=== PATIENT | female | born 1970 | race Caucasian/White ===

== ENCOUNTER 2018-04-21 13:03 | Emergency (ER) | payer OTHER ==
[~2018-04-21] VITALS: Ht 170.2 cm; Wt 59.0 kg
[~2018-04-21 13:03] MED LIST: DEPAKENE250 MG/5 M PO
[2018-04-21 13:10] VITALS: BP 127/83
--- NOTE | 2018-04-21 13:52 | ED UPPER/LOWER EXTREMITY COMPL ---
History of Present Illness General Chief Complaint: General Adult Stated Complaint: R ARM PAIN S/P FALL Source: patient Exam Limitations: no limitations Vital Signs & Intake/Output Vital Signs & Intake/Output Vital Signs Date Time Temp Pulse Resp B/P B/P Pulse O2 O2 Flow FiO2 Mean Ox Delivery Rate 04/21 1500 97 04/21 1310 98.3 83 16 127/83 99 Room Air Allergies Coded Allergies: NO KNOWN ALLERGIES (07/24/12) Reconcile Medications Valproic Acid (Depakene) 250 MG/5 ML SOLUTION 10 ML PO BID SEIZURES TAKE 10 ML IN THE MORNING AND 5 ML AT NIGHT. Triage Note: 47 Y/O FEMALE C/O R ELBOW PAIN S/P MECHANICAL TRIP AND FALL WHILE IN HOME 30 MIN AGO. DENIES ANY OTHER COMPLAINTS. DECLINES OFFER OF PAIN MEDS NO DEFORMITIES NOTED Triage Nurses Notes Reviewed? yes Onset: Abrupt Duration: constant Timing: single episode today Severity: moderate Severity Numbers: 5 HPI: Patient is a 47-year-old female who presents to the emergency room with concerns of mechanical fall where patient slipped and struck the right posterior aspect of elbow to windowsill resulting acute onset of pain and inflammation. Minimal skin abrasions noted Patient has left arm dominant denies any shoulder or wrist pain no medications given prior to arrival (Devon Dickson) Past History Travel History Traveled to [place] past 21 day No Medical History Any Pertinent Medical History? see below for history Neurological: seizure EENT: NONE Cardiovascular: NONE Respiratory: NONE Gastrointestinal: NONE Hepatic: NONE Renal: NONE Musculoskeletal: NONE Psychiatric: NONE Endocrine: hypothyroidism Blood Disorders: NONE Cancer(s): NONE FRENCH FOLDER/Reproductive: NONE Surgical History Surgical History: non-contributory Psychosocial History What is your primary language Kiswahili Tobacco Use: Current Daily Use Daily Tobacco Use Amount/Type: => 5 Cigarettes daily Family History Hx Contributory? No (Devon Dickson) Review of Systems Review of Systems Constitutional: Reports: no symptoms. EENTM: Reports: no symptoms. Respiratory: Reports: no symptoms. Cardiovascular: Reports: no symptoms. Gastrointestinal/Abdominal: Reports: no symptoms. Genitourinary: Reports: no symptoms. Musculoskeletal: Reports: see HPI, joint pain. Skin: Reports: no symptoms. Neurological/Psychological: Reports: no symptoms. Hematologic/Endocrine: Reports: no symptoms. Immunological: Reports: no symptoms. All Other Systems: Reviewed and Negative (Devon Dickson) Physical Exam Physical Exam General Appearance: no apparent distress, alert, comfortable Head: atraumatic Eyes: Bilateral: normal appearance. Neck: normal inspection, no midline tenderness Cardiovascular/Respiratory: no respiratory distress Peripheral Pulses: 2+ radial (R) Neurologic/Tendon: normal sensation, normal motor functions, normal tendon functions, responds to pain, no evidence tendon injury, no pulse deficit Skin: normal color, warm/dry Comments: Right shoulder normal inspection nontender full active range of motion Right elbow noted generalized point tenderness and mild swelling and skin abrasion Decreased active range of motion noted Right wrist normal inspection nontender (Devon Dickson) Progress Differential Diagnosis: arterial insufficiency, compartment syndrome, contusion, dislocation, DVT, fracture, gout, septic arthritis, sprain, tendon injury Plan of Care: Orders Procedure Date/time Status XRY-ELBOW 3 OR MORE VIEWS, R 04/21 1315 Active Patient had unremarkable osseous injury after x-rays resulted from where patient was point tender. Patient was neurovascular intact to right upper extremity. \Patient will be treated for concerns of elbow contusion right side discussed disposition plan and she will comply and have no questions patient declined pain medications in the emergency room Diagnostic Imaging: Viewed by Me: Radiology Read. Radiology Impression: no acute abnormality, no fracture Comments: PATIENT: KEVIN NOBLE PRESENT AGE: 47 PATIENT ACCOUNT NO: [id number] : 68 LOCATION: [facility] ORDERING PHYSICIAN: Devon ARIZA SERVICE DATE: 04/21/18 EXAM TYPE: RAD - XRY-ELBOW 3 OR MORE VIEWS, R EXAMINATION: XR ELBOW, RIGHT CLINICAL INFORMATION: Right elbow direct trauma. COMPARISON: None. TECHNIQUE: AP, lateral, and oblique views of the right elbow were obtained. FINDINGS: There is normal alignment of the osseous structures. No fractures are demonstrated. No joint effusions are seen. The soft tissues are unremarkable. Joint spaces are maintained. There are no radiodense foreign bodies. IMPRESSION: 1. Unremarkable x-rays of the right elbow. DICTATED BY: Shan Nogueira MD DATE/TIME DICTATED:04/21/181418 MOTOR VEHICLE LICENCE EXAMINER:PACO (Devon Dickson) Departure Departure Disposition: HOME OR SELF CARE Condition: Stable Clinical Impression Primary Impression: Contusion of elbow, right Referrals: Amelie Coronel APRN (PCP/Family) Alber Mullins MD Additional Instructions: As discussed begin [id number] ibuprofen for pain and inflammation, begin icing the area directly 20 minutes every 2 hours. If symptoms worsen return to emergency room, if no better in one week follow-up with orthopedic Dr. Mullins. Departure Forms: Customer Survey General Discharge Information (Devon Dickson) PA/SECURITY GUARDS DISPATCHER Co-Sign Statement Statement: ED Attending supervision documentation- [] I saw and evaluated the patient. I have also reviewed all the pertinent lab results and diagnostic results. I agree with the findings and the plan of care as documented in the PA's/SECURITY GUARDS DISPATCHER's documentation. [X] I have reviewed the ED Record and agree with the PA's/SECURITY GUARDS DISPATCHER's documentation. [] Additions or exceptions (if any) to the PAs/SECURITY GUARDS DISPATCHER's note and plan are summarized below: [] (Romain Crook DO
--- NOTE | 2018-04-21 14:24 | RADIOLOGY REPORT ---
EXAMINATION: XR ELBOW, RIGHT CLINICAL INFORMATION: Right elbow direct trauma. COMPARISON: None. TECHNIQUE: AP, lateral, and oblique views of the right elbow were obtained. FINDINGS: There is normal alignment of the osseous structures. No fractures are demonstrated. No joint effusions are seen. The soft tissues are unremarkable. Joint spaces are maintained. There are no radiodense foreign bodies. IMPRESSION: 1. Unremarkable x-rays of the right elbow.
== END 2018-04-21 15:00 ==
LOC: ERH 13:03
DX: S50.01XA Contusion of right elbow, initial encounter (principal); W01.0XXA Fall on same level from slipping, tripping and stumbling without subsequent striking against object, initial encounter
CPT/HCPCS: 73080-RT